=== PATIENT | female | born 1980 | race Caucasian/White ===

== ENCOUNTER 2019-04-02 20:47 | Emergency (ER) | payer MEDICAID, MEDICARE ==
[~2019-04-02] VITALS: Ht 170.2 cm; Wt 119.5 kg
[~2019-04-02 20:47] MED LIST: CALC-159 PO; CHOL400T PO; CYAN500T63 PO; DOCU-329 PO; DULO30CA52 PO; ESCI10TA PO; FERR325T29 PO; FLO110IN IH; HYDR-4353 PO; HYDR12.55 PO; IRON-12 PO; MULT-1085 PO; ONDA4TAB6 PO; OXYC-145 PO; OXYC-150 PO; SUMA50TA PO; [UNRECOGNIZED DRUG - CODE] PO
[2019-04-02 20:51] VITALS: BP 162/100
== END 2019-04-02 23:09 | disposition home or self-care (01) ==
LOC: ER 20:49
DX: M25.571 Pain in right ankle and joints of right foot (principal); I10 Essential (primary) hypertension; J45.909 Unspecified asthma, uncomplicated; G89.29 Other chronic pain; Z98.890 Other specified postprocedural states; Z88.1 Allergy status to other antibiotic agents; Z88.5 Allergy status to narcotic agent; Z79.899 Other long term (current) drug therapy; W22.8XXA Striking against or struck by other objects, initial encounter; Y93.89 Activity, other specified; Y92.89 Other specified places as the place of occurrence of the external cause; Y99.9 Unspecified external cause status
CPT/HCPCS: 73610; 99283

== ENCOUNTER 2019-06-20 20:46 | Emergency (ER) | payer MEDICAID ==
[~2019-06-20] VITALS: Ht 167.6 cm; Wt 123.6 kg
[2019-06-20] MEDS ORDERED: ketorolac trometh. 30mg/ml inj. IM ONE (21:20)
[2019-06-20 22:00] VITALS: BP 153/94
== END 2019-06-20 22:01 | disposition home or self-care (01) ==
LOC: ER 20:47
DX: S40.012A Contusion of left shoulder, initial encounter (principal); I10 Essential (primary) hypertension; J45.909 Unspecified asthma, uncomplicated; G89.29 Other chronic pain; Z98.890 Other specified postprocedural states; Z88.1 Allergy status to other antibiotic agents; Z88.5 Allergy status to narcotic agent; W11.XXXA Fall on and from ladder, initial encounter; Y93.89 Activity, other specified; Y92.89 Other specified places as the place of occurrence of the external cause; Y99.9 Unspecified external cause status
CPT/HCPCS: 73030; 96372; 99284; J1885

== ENCOUNTER 2019-08-29 19:15 | Emergency (ER) | payer MEDICAID ==
[~2019-08-29] VITALS: Ht 170.2 cm; Wt 135.0 kg
[2019-08-29 19:21] VITALS: BP 154/95
--- NOTE | 2019-08-29 19:33 | NUR ---
Patient's BP 167/107, she reports she has had higher than normal BP and is following weekly with PCP.
== END 2019-08-29 20:43 | disposition home or self-care (01) ==
LOC: ER 19:15
DX: M25.561 Pain in right knee (principal); I10 Essential (primary) hypertension; J45.909 Unspecified asthma, uncomplicated; G89.29 Other chronic pain; F41.9 Anxiety disorder, unspecified; F32.9 Major depressive disorder, single episode, unspecified; Z98.890 Other specified postprocedural states; Z72.89 Other problems related to lifestyle; Z88.5 Allergy status to narcotic agent; Z88.8 Allergy status to other drugs, medicaments and biological substances; Z79.899 Other long term (current) drug therapy
CPT/HCPCS: 29505; 73564; 99283

== ENCOUNTER 2019-10-16 18:57 | Emergency (ER) | payer MEDICAID ==
[~2019-10-16] VITALS: Ht 167.6 cm; Wt 134.1 kg
--- NOTE | 2019-10-16 19:07 | NUR ---
Pt. to CT at this time with RN/SRN and radiology technician.
--- NOTE | 2019-10-16 19:15 | NUR ---
Responded to stroke alert bed 5, pt returning from Ct., call to telemed for neuro consult. pt reports at 1730 [address] and had episode of numbness to left leg, arm and face, this has been intermittant, she reports difficulty turning her head at that time, has light sentsitivity.
[2019-10-16 19:18] LABS: BASOPHILS # (AUTO) 0.1 X10'3 (0-0.2); BASOPHILS % (AUTO) 0.6 % (0-1); EOSINOPHILS # (AUTO) 0.4 X10'3 (0-0.9); EOSINOPHILS % (AUTO) 3.3 % (0-6); HEMATOCRIT 38.5 % (35.0-45.0); HEMOGLOBIN 12.9 g/dl (12.0-16.0); LYMPHOCYTES # (AUTO) 2.6 X10'3 (1.1-4.8); LYMPHOCYTES % (AUTO) 23.6 % (21-51); MEAN CORPUSCULAR HEMOGLOBIN 28.4 PG (27.0-31.0); MEAN CORPUSCULAR HGB CONC 33.5 g/dL (33.0-36.5); MEAN CORPUSCULAR VOLUME 84.9 FL (78-98); MEAN PLATELET VOLUME 6.5 FL (7.4-10.4); MONOCYTES # (AUTO) 0.7 X10'3 (0-0.9); MONOCYTES % (AUTO) 5.9 % (2-12); NEUTROPHILS # (AUTO) 7.4 X10'3 (1.8-7.7); NEUTROPHILS % (AUTO) 66.6 % (42-75); PLATELET COUNT 312 X10'3 (140-440); RED BLOOD COUNT 4.54 X10'6 (4.20-5.60); RED CELL DISTRIBUTION WIDTH 13.5 % (11.5-14.5); WHITE BLOOD COUNT 11.1 X10'3 (4.5-11.0)
--- NOTE | 2019-10-16 19:27 | NUR ---
Dr. Doran and stroke RN at bedside evaluating the pt. at this time.
[2019-10-16 19:31] LABS: ALANINE AMINOTRANSFERASE 63 U/L (12-78); ALBUMIN 3.5 G/DL (3.4-5.0); ALBUMIN/GLOBULIN RATIO 0.9 (1.1-1.5); ALKALINE PHOSPHATASE 54 IU/L (46-116); ANION GAP 9 (8-16); ASPARTATE AMINO TRANSFERASE 39 U/L (10-37); BILIRUBIN,TOTAL 0.5 MG/DL (0.1-1.0); BLOOD UREA NITROGEN 10 MG/DL (7-18); BUN/CREATININE RATIO 11.9 (6.6-38.0); CALCIUM 8.1 MG/DL (8.5-10.1); CHLORIDE 108 MMOL/L (99-107); CREATININE 0.84 MG/DL (0.40-0.90); GLUCOSE 85 MG/DL (70-104); POTASSIUM 3.4 MMOL/L (3.5-5.1); SODIUM 142 MMOL/L (135-145); TOTAL CARBON DIOXIDE 24.6 MMOL/L (24-32); TOTAL PROTEIN 7.2 G/DL (6.4-8.2); eGFR 76 ML/MIN
[2019-10-16 19:33] LABS: TROPONIN I < 0.04 NG/ML (0.0-0.05)
--- NOTE | 2019-10-16 19:37 | NUR ---
Telemed consult with Dr. Meier, NIHSS 1 with numbness, coming and going to left side. pt reports 8 episodes of bells palsey and hx of migrains DOSS, also feels under stress as she is moving. She has a hx of anxiety. Dr. Meier recommend CTA head and neck, treat migraine, if not effective admit and get MRI.
[2019-10-16] MEDS ORDERED: GABA300C PO (19:46)
[2019-10-16] MEDS ORDERED: DULO60CA65 PO (19:46)
[2019-10-16] MEDS ORDERED: ESTR1TAB28 PO (19:46)
[2019-10-16] MEDS ORDERED: TIZA2TAB7 PO (19:46)
[2019-10-16] MEDS ORDERED: LORA10TA7 PO (19:46)
[2019-10-16] MEDS ORDERED: SUMA100T16 PO (19:46)
[2019-10-16] MEDS ORDERED: MONT10TA26 PO (19:46)
[2019-10-16] MEDS ORDERED: ESCI20TA45 PO (19:46)
[2019-10-16] MEDS ORDERED: HYDR25TA4 PO (19:46)
[2019-10-16] MEDS ORDERED: LISI-600 PO (19:46)
[2019-10-16] MEDS ORDERED: HYDR-3972 PO (19:46)
[2019-10-16] MEDS ORDERED: NYSPWD TOP (19:46)
[2019-10-16] MEDS ORDERED: iohexol 350MG/ML 100ml bottle IV ONE (20:08)
[2019-10-16] MEDS ORDERED: SUMAtriptan succ. 6 MG/0.5ml vial SQ ONE (20:10)
[2019-10-16] MEDS ORDERED: proCHLORperazine 10 MG/2 ml inj IV ONE (20:10)
[2019-10-16] MEDS ORDERED: normal saline 1000ML IV soln IVB ONE (20:10)
[2019-10-16] MEDS ORDERED: diphenhydrAMINE 50 mg/ml inj IV ONE (20:25)
[2019-10-16 21:48] VITALS: BP 169/75
== END 2019-10-16 22:24 | disposition home or self-care (01) ==
LOC: ER 18:58
DX: G43.909 Migraine, unspecified, not intractable, without status migrainosus (principal); I10 Essential (primary) hypertension; J45.909 Unspecified asthma, uncomplicated; G89.29 Other chronic pain; F41.9 Anxiety disorder, unspecified; F32.9 Major depressive disorder, single episode, unspecified; Z98.890 Other specified postprocedural states; Z72.89 Other problems related to lifestyle; Z88.5 Allergy status to narcotic agent; Z88.8 Allergy status to other drugs, medicaments and biological substances; Z79.899 Other long term (current) drug therapy
CPT/HCPCS: 36415; 70450; 70496; 70498; 71045; 80053; 82948; 84484; 85025; 93005; 96372; 96374; 96375; 99285; J0780; J1200; J7030; Q9967; J3030

== ENCOUNTER 2019-10-19 15:44 | Inpatient (IN) | payer MEDICAID ==
[~2019-10-19] VITALS: Ht 167.6 cm; Wt 134.1 kg
[~2019-10-19 15:44] MED LIST changes: -DOCU-329 PO; -DULO30CA52 PO; +DULO60CA65 PO; -ESCI10TA PO; +ESCI20TA45 PO; +ESTR1TAB28 PO; -FERR325T29 PO; -FLO110IN IH; +GABA300C PO; +HYDR-3972 PO; -HYDR-4353 PO; -HYDR12.55 PO; +HYDR25TA4 PO; +LISI-600 PO; +LORA10TA7 PO; +MONT10TA26 PO; +NYSPWD TOP; -ONDA4TAB6 PO; -OXYC-145 PO; -OXYC-150 PO; +SUMA100T16 PO; -SUMA50TA PO; +TIZA2TAB7 PO; -[UNRECOGNIZED DRUG - CODE] PO
[2019-10-19 16:24] LABS: BASOPHILS # (AUTO) 0.1 X10'3 (0-0.2); BASOPHILS % (AUTO) 0.7 % (0-1); EOSINOPHILS # (AUTO) 0.3 X10'3 (0-0.9); HEMATOCRIT 41.2 % (35.0-45.0); HEMOGLOBIN 13.6 g/dl (12.0-16.0); LYMPHOCYTES % (AUTO) 22.7 % (21-51); MEAN CORPUSCULAR HGB CONC 32.9 g/dL (33.0-36.5); MEAN CORPUSCULAR VOLUME 84.9 FL (78-98); MEAN PLATELET VOLUME 6.6 FL (7.4-10.4); MONOCYTES # (AUTO) 0.5 X10'3 (0-0.9); MONOCYTES % (AUTO) 5.8 % (2-12); NEUTROPHILS % (AUTO) 67.8 % (42-75); PLATELET COUNT 310 X10'3 (140-440); RED BLOOD COUNT 4.85 X10'6 (4.20-5.60); RED CELL DISTRIBUTION WIDTH 13.6 % (11.5-14.5); WHITE BLOOD COUNT 8.8 X10'3 (4.5-11.0)
[2019-10-19 16:37] LABS: ALANINE AMINOTRANSFERASE 82 U/L (12-78); ALBUMIN 3.9 G/DL (3.4-5.0); ALKALINE PHOSPHATASE 54 IU/L (46-116); ANION GAP 11 (8-16); ASPARTATE AMINO TRANSFERASE 56 U/L (10-37); BILIRUBIN,TOTAL 0.8 MG/DL (0.1-1.0); BLOOD UREA NITROGEN 11 MG/DL (7-18); BUN/CREATININE RATIO 13.3 (6.6-38.0); CALCIUM 8.7 MG/DL (8.5-10.1); CHLORIDE 105 MMOL/L (99-107); CREATININE 0.83 MG/DL (0.40-0.90); GLUCOSE 85 MG/DL (70-104); POTASSIUM 3.8 MMOL/L (3.5-5.1); SODIUM 142 MMOL/L (135-145); TOTAL CARBON DIOXIDE 26.4 MMOL/L (24-32); TOTAL PROTEIN 7.9 G/DL (6.4-8.2); eGFR 77 ML/MIN
[2019-10-19 16:39] LABS: TROPONIN I < 0.04 NG/ML (0.0-0.05)
[2019-10-19] MEDS ORDERED: FLUT1AER4 IH (17:28)
[2019-10-19] MEDS ORDERED: IPRA3AMP31 IH (17:28)
[2019-10-19] MEDS ORDERED: PRAZ1CAP5 PO (17:28)
[2019-10-19] MEDS ORDERED: ALBU8.5H8 IH (17:28)
--- NOTE | 2019-10-19 17:40 | NUR ---
PT REPORTING HEADACHE AT THIS TIME. 15MG TORADOL IV VERBAL RECIEVED.
[2019-10-19] MEDS ORDERED: ketorolac trometh. 30mg/ml inj. IV ONE (17:45)
--- NOTE | 2019-10-19 18:27 | NUR ---
tele neuro consult in process PA aware
[2019-10-19] MEDS ORDERED: mag hydrox/Alum hydrox/simeth 30ml oral suspension PO PRN (20:45)
[2019-10-19] MEDS ORDERED: HYDROcodone/acetaminophen 5mg/325mg tablet PO PRN (20:45)
[2019-10-19] MEDS ORDERED: acetaminophen 325mg tablet PO PRN ×2 (20:45)
[2019-10-19] MEDS ORDERED: HYDROmorphone inj. 0.5 MG/0.5 ML DISP.SYRIN IV PRN (20:45)
[2019-10-19] MEDS ORDERED: magnesium hydroxide 30ml (MOM) UD suspension PO PRN (20:45)
[2019-10-19] MEDS ORDERED: HYDROcodone/acetaminophen 10/325mg tab PO PRN (20:45)
[2019-10-19] MEDS ORDERED: tizanidine 4mg tablet PO PRN (20:50)
[2019-10-19] MEDS ORDERED: ipratropium/albuterol 3ml nebule IH PRN (20:50)
[2019-10-19] MEDS ORDERED: albuterol 2.5 MG/3 ML nebule NEB PRN (20:50)
[2019-10-19] MEDS ORDERED: SUMAtriptan 25 MG tablet PO PRN (20:50)
[2019-10-19] MEDS ORDERED: prazosin 1mg capsule PO SCH (21:00)
[2019-10-19] MEDS: albuterol 2.5 MG/3 ML nebule NEB SCH (21:00)
[2019-10-19] MEDS: gabapentin 300mg capsule PO SCH (21:09)
[2019-10-19 21:11] LABS: HEMOGLOBIN A1C 5.5 % (4.5-6.2)
[2019-10-19 21:15] LABS: CHOLESTEROL 144 MG/DL (0-200); HDL CHOLESTEROL 36 MG/DL (35-60); LDL CHOLESTEROL 88 MG/DL (50-100); TRIGLYCERIDES 116 MG/DL (20-135)
[2019-10-19] MEDS ORDERED: duloxetine 30mg CAPSULE.DR PO ONE (21:20)
[2019-10-19] MEDS: ondansetron/PF 4mg/2ml inj IV PRN (23:27)
[2019-10-19 23:30] VITALS: BP 142/70
--- NOTE | 2019-10-19 23:30 | NUR ---
Patient arrived via gurney and walked independently with a normal gait to the bed and sat independently. Will admit and assess.
--- NOTE | 2019-10-19 23:52 | NUR ---
Patient refused SCDs. Explained risks and benefits of SCDs patient responded, "I am claustrophobic if I feel tied down I will freak out." Addendum: 10/20/19 at 0003 by Mona Sheikh RN Amended: Links added.
[2019-10-20] MEDS: albuterol 2.5 MG/3 ML nebule NEB SCH ×3 (03:00→14:51)
[2019-10-20 06:00] VITALS: BP 137/80
--- NOTE | 2019-10-20 06:19 | NUR ---
Patient in room [facility] 4021A. I have received report from SALTY HERNANDEZ and had the opportunity to ask questions and assume patient care.
[2019-10-20 06:23] LABS: BASOPHILS % (AUTO) 0.5 % (0-1); EOSINOPHILS # (AUTO) 0.3 X10'3 (0-0.9); EOSINOPHILS % (AUTO) 3.7 % (0-6); HEMATOCRIT 38.2 % (35.0-45.0); HEMOGLOBIN 12.7 g/dl (12.0-16.0); LYMPHOCYTES # (AUTO) 2.1 X10'3 (1.1-4.8); LYMPHOCYTES % (AUTO) 24.5 % (21-51); MEAN CORPUSCULAR HEMOGLOBIN 28.2 PG (27.0-31.0); MEAN CORPUSCULAR HGB CONC 33.3 g/dL (33.0-36.5); MEAN CORPUSCULAR VOLUME 84.9 FL (78-98); MEAN PLATELET VOLUME 6.6 FL (7.4-10.4); MONOCYTES # (AUTO) 0.4 X10'3 (0-0.9); MONOCYTES % (AUTO) 5.2 % (2-12); NEUTROPHILS # (AUTO) 5.6 X10'3 (1.8-7.7); NEUTROPHILS % (AUTO) 66.1 % (42-75); PLATELET COUNT 284 X10'3 (140-440); RED CELL DISTRIBUTION WIDTH 13.4 % (11.5-14.5); WHITE BLOOD COUNT 8.5 X10'3 (4.5-11.0)
--- NOTE | 2019-10-20 06:26 | NUR ---
Reported off to Caitlyn POND. Patient is awake and alert on room air in no apparent distress. Call light and items of frequent use within reach.
[2019-10-20 06:43] LABS: ALBUMIN 3.5 G/DL (3.4-5.0); ANION GAP 6 (8-16); BLOOD UREA NITROGEN 12 MG/DL (7-18); BUN/CREATININE RATIO 17.1 (6.6-38.0); CALCIUM 8.7 MG/DL (8.5-10.1); CHLORIDE 106 MMOL/L (99-107); CHOL/HDL RATIO 4.3 (0.00-4.99); CHOLESTEROL 129 MG/DL (0-200); GLUCOSE 131 MG/DL (70-104); HDL CHOLESTEROL 30 MG/DL (35-60); LDL CHOLESTEROL 78 MG/DL (50-100); POTASSIUM 3.7 MMOL/L (3.5-5.1); SODIUM 140 MMOL/L (135-145); TRIGLYCERIDES 154 MG/DL (20-135); eGFR > 90 ML/MIN
[2019-10-20] MEDS: gabapentin 300mg capsule PO SCH ×2 (07:52→13:31)
[2019-10-20] MEDS: ondansetron/PF 4mg/2ml inj IV PRN (07:56)
[2019-10-20 08:00] VITALS: BP_SYST 151; BP_SYST 167; BP_DIAS 100; BP_DIAS 87
[2019-10-20] MEDS ORDERED: aspirin 325mg tablet, delayed-release (Ecotrin) PO SCH (08:00)
[2019-10-20] MEDS ORDERED: [UNRECOGNIZED DRUG - OTHER] PO SCH (08:00)
[2019-10-20] MEDS ORDERED: IRON CARBONYL PO SCH (08:00)
[2019-10-20] MEDS ORDERED: cyanocobalamin 500mcg tablet PO SCH (08:00)
[2019-10-20] MEDS ORDERED: estradiol 1mg tablet PO SCH (08:00)
[2019-10-20] MEDS ORDERED: cholecalciferol (vitamin D) 400 unit tablet PO SCH (08:00)
[2019-10-20] MEDS ORDERED: calcium carbonate/vitamin D3 tablet PO SCH (08:00)
[2019-10-20] MEDS ORDERED: HYDROchlorothiazide 25mg tablet PO SCH (08:00)
[2019-10-20] MEDS ORDERED: ESCITALOPRAM OXALATE 5 MG TABLET PO SCH (08:00)
[2019-10-20] MEDS ORDERED: duloxetine 30mg CAPSULE.DR PO SCH (08:00)
[2019-10-20] MEDS ORDERED: multivitamins, therapeutics tablet PO SCH (08:00)
[2019-10-20] MEDS ORDERED: VIT B12 PO SCH (08:00)
[2019-10-20] MEDS ORDERED: VIT C PO SCH (08:00)
[2019-10-20] MEDS ORDERED: budesonide 0.5mg/2ml UD nebule IH SCH (09:00)
[2019-10-20 10:00] VITALS: BP 132/76
--- NOTE | 2019-10-20 11:19 | NUR ---
Pt TC: Pt requesting bottled water, chicken supreme entree, salt-free seasoning, and side salad w/ ranch for lunch today; declines alternative food options but also requests cottage cheese/fruit at 11AM. Dietary notified of preferences. Admit w/ CVA without WEB SITE MANAGER BSS; VINNIE recommended WEB SITE MANAGER BSS given DX. Will continue to monitor. Addendum: 10/20/19 at [address] Amended: Links added.
--- NOTE | 2019-10-20 13:13 | NUR ---
Page Sent PAGER ID: [phone] MESSAGE: OLIVIER [id number]: JULIO SAWYER 4021A...PT IS TOO BROAD TO FIT INTO MRI
[2019-10-20 14:00] VITALS: BP 152/92
--- NOTE | 2019-10-20 14:42 | NUR ---
Page Sent PAGER ID: [phone] MESSAGE: OLIVIER [id number]: JULIO SAWYER 4021A...PT WANTS TO KNOW WHAT IS NEXT SINCE SHE CANNOT HAVE MRI?
--- NOTE | 2019-10-20 17:30 | NUR ---
Talked to patient about staying and doing an MRI, but because of her 3 kids and a grandmother of 83 she could not stay another night. Her anxiety level was too high. So she signed out AMA. She has an appointment with her PCP on Friday at 3:30. She knows to come back in if she has anymore symptoms.
== END 2019-10-20 17:30 | disposition left against medical advice (07) | DRG 58 ==
LOC: ER 15:44 → ED HOLD 20:44 → ORTHO 4S 23:30
PROVIDERS: ADMIT Internal Medicine; ATTEND Internal Medicine
DX: R20.0 Anesthesia of skin (principal); E66.01 Morbid (severe) obesity due to excess calories; F43.10 Post-traumatic stress disorder, unspecified; I10 Essential (primary) hypertension; J45.909 Unspecified asthma, uncomplicated; G89.29 Other chronic pain; M54.9 Dorsalgia, unspecified; G43.909 Migraine, unspecified, not intractable, without status migrainosus; F41.9 Anxiety disorder, unspecified; F32.9 Major depressive disorder, single episode, unspecified; Z79.82 Long term (current) use of aspirin; Z79.890 Hormone replacement therapy; Z90.710 Acquired absence of both cervix and uterus; Z98.891 History of uterine scar from previous surgery; Z88.5 Allergy status to narcotic agent; Z68.42 Body mass index [BMI] 45.0-49.9, adult
CPT/HCPCS: 36415; 70450; 71045; 80048; 80053; 80061; 83036; 83880; 84484; 85025; 85651; 87081; 93005; 94640; 94760; 97110; 97161; 97530; 99285; G0378; J1885; J2405; J7626

== ENCOUNTER 2019-12-12 16:05 | Emergency (ER) | payer MEDICAID ==
[~2019-12-12] VITALS: Ht 170.2 cm; Wt 137.7 kg
[~2019-12-12 16:05] MED LIST changes: +ALBU8.5H8 IH; -CYAN500T63 PO; +CYAN500T64 PO; +FLUT1AER4 IH; +IPRA3AMP31 IH; +PRAZ1CAP5 PO
[2019-12-12 16:26] VITALS: BP 154/97
[2019-12-12] MEDS ORDERED: proparacaine 0.5% ophthalmic drops 15ml LEFTEYE ONE (17:10)
[2019-12-12] MEDS ORDERED: TETRACAINE 0.5% 4 ML OPHTHALMIC DROPS LEFTEYE ONE (17:10)
== END 2019-12-12 18:04 | disposition home or self-care (01) ==
LOC: ER 16:05
DX: S00.12XA Contusion of left eyelid and periocular area, initial encounter (principal); I10 Essential (primary) hypertension; J45.909 Unspecified asthma, uncomplicated; G89.29 Other chronic pain; F41.9 Anxiety disorder, unspecified; F32.9 Major depressive disorder, single episode, unspecified; Z98.890 Other specified postprocedural states; Z88.5 Allergy status to narcotic agent; Z88.8 Allergy status to other drugs, medicaments and biological substances; Z79.899 Other long term (current) drug therapy; W22.8XXA Striking against or struck by other objects, initial encounter; Y93.89 Activity, other specified; Y92.89 Other specified places as the place of occurrence of the external cause; Y99.8 Other external cause status
CPT/HCPCS: 99283

== ENCOUNTER 2022-01-27 10:38 | Emergency (ER) | payer MEDICAID ==
[~2022-01-27] VITALS: Ht 167.6 cm; Wt 114.1 kg
[~2022-01-27 10:38] MED LIST changes: +ALBU8.5H17 IH; -ALBU8.5H8 IH; -CYAN500T64 PO; +CYAN500T71 PO; +ESCI20TA39 PO; -ESCI20TA45 PO; -LISI-600 PO; +LISI20TA28 PO; +MONT-40 PO; -MONT10TA26 PO; +TIZA-189 PO; -TIZA2TAB7 PO
[2022-01-27 11:09] VITALS: BP 164/105
[2022-01-27] MEDS ORDERED: ONDA4TAB12 PO (11:55)
== END 2022-01-27 12:17 | disposition home or self-care (01) ==
LOC: ER 10:39
DX: B34.9 Viral infection, unspecified (principal); G43.909 Migraine, unspecified, not intractable, without status migrainosus; I10 Essential (primary) hypertension; J45.909 Unspecified asthma, uncomplicated; G89.29 Other chronic pain; M54.50 Low back pain, unspecified
CPT/HCPCS: 99283

== ENCOUNTER 2024-03-01 14:09 | Emergency (ER) | payer MEDICAID ==
[~2024-03-01] VITALS: Ht 167.6 cm; Wt 130.5 kg
[~2024-03-01 14:09] MED LIST changes: +ONDA-243 PO
[2024-03-01 14:33] VITALS: BP 178/118; PULSE 87; RESP 18; O2SAT 98
[2024-03-01] MEDS ORDERED: PENI500T2 PO (15:13)
[2024-03-01] MEDS: LIDOcaine 1% 30ml preserv. free vial IJ STA (15:21)
[2024-03-01 15:29] VITALS: TEMP 97.8
== END 2024-03-01 15:31 | disposition home or self-care (01) ==
LOC: ER 14:09
DX: S09.8XXA Other specified injuries of head, initial encounter (principal); I10 Essential (primary) hypertension; Z88.8 Allergy status to other drugs, medicaments and biological substances; Z88.5 Allergy status to narcotic agent; Z79.899 Other long term (current) drug therapy; G43.909 Migraine, unspecified, not intractable, without status migrainosus; J45.909 Unspecified asthma, uncomplicated; G89.29 Other chronic pain; M54.9 Dorsalgia, unspecified; F41.9 Anxiety disorder, unspecified; F32.A Depression, unspecified; Z98.890 Other specified postprocedural states; Z72.89 Other problems related to lifestyle; X58.XXXA Exposure to other specified factors, initial encounter; Y93.89 Activity, other specified; Y92.89 Other specified places as the place of occurrence of the external cause; Y99.8 Other external cause status
CPT/HCPCS: 96372; 99283

== ENCOUNTER 2024-03-20 19:47 | Emergency (ER) | payer MEDICAID ==
[~2024-03-20] VITALS: Ht 170.2 cm; Wt 130.9 kg
[2024-03-20] MEDS ORDERED: PROM118S5 PO (21:48)
[2024-03-20 21:58] VITALS: BP 195/125; PULSE 73; TEMP 99; O2SAT 97
[2024-03-20 21:59] VITALS: RESP 16
== END 2024-03-20 21:59 | disposition home or self-care (01) ==
LOC: ER 19:48
DX: R05.9 Cough, unspecified (principal); I10 Essential (primary) hypertension; J45.909 Unspecified asthma, uncomplicated; G89.29 Other chronic pain; M54.9 Dorsalgia, unspecified; Z88.5 Allergy status to narcotic agent; Z88.8 Allergy status to other drugs, medicaments and biological substances; Z79.899 Other long term (current) drug therapy; Z79.52 Long term (current) use of systemic steroids; G43.909 Migraine, unspecified, not intractable, without status migrainosus; F41.9 Anxiety disorder, unspecified; F32.A Depression, unspecified; Z98.890 Other specified postprocedural states; Z72.89 Other problems related to lifestyle
CPT/HCPCS: 71045; 99283